=== PATIENT | female | born 1980 | race Caucasian/White ===

== ENCOUNTER 2021-03-10 01:45 | Emergency (ER) | payer BC ==
[~2021-03-10] VITALS: Ht 175.3 cm; Wt 56.5 kg
--- NOTE | 2021-03-10 02:13 | PHYS DOC ---
Adult General Chief Complaint Chief Complaint: ABDOMINAL PAIN HPI HPI Patient is a 40-year-old female who presents with a chief complaint of epigastric pain, 6 out of 10, sharp in nature with some radiation to her back and right upper quadrant which started about 930 last night shortly after eating. States she had anything like this before. Denies any recent travels, traumas, illnesses, fevers, chest pain, shortness of breath, dysuria, hematuria, blood in the stool or diarrhea. States she only has sex with women, is not and does not want a test/discharge for test because she is never had sex with a man. Denies any history of STIs. Denies any vagina l bleeding, discharge or pain. Review of Systems Review of Systems Review of systems otherwise unremarkable except noted in HPI Physical Exam Physical Exam Constitutional: Well developed, well nourished, no acute distress, non-toxic appearance. [] HENT: Normocephalic, atraumatic, oropharynx moist, Eyes: conjunctiva normal, no discharge. [] Cardiovascular:Heart rate regular rhythm, no murmur [] Lungs & Thorax: Bilateral breath sounds clear to auscultation [] Abdomen: soft, no tenderness, no masses, no pulsatile masses. [] Skin: Warm, dry, no erythema, no rash. [] Back: No tenderness, no CVA tenderness. [] Extremities: No tenderness, ROM intact, no edema. [] Neurologic: Alert and oriented X 3, no focal deficits noted. [] Psychologic: Affect normal, judgement normal, mood normal. [] EKG EKG [] Radiology/Procedures Radiology/Procedures [] Heart Score C/O Chest Pain: No Risk Factors: Risk Factors: DM, Current or recent (<one month) smoker, HTN, HLP, family history of CAD, obesity. Risk Scores: Risk Factors: DM, Current or recent (<one month) smoker, HTN, HLP, family h istory of CAD, obesity. Course & Med Decision Making Course & Med Decision Making Patient is a 40-year-old female who presents with a chief complaint of abdominal pain Vital signs not concerning. Physical exam noted above. Patient placed on monitor with IV access established. Laboratory analysis not concerning. CT notable for significant stool burden, suggesting constipation. Urinalysis with elevated specific gravity. Discussed all findings with patient. Discussed strategies for managing constipation. Discussed staying properly hydrated. Advised to follow-up in the morning with primary care physician to update on ED visit and set up a follow-up. Gave return precautions to the ED. Patient grateful, verbalized understanding and agreed with plan of discharge. Dragon Disclaimer Dragon Disclaimer This electronic medical record was generated, in whole or in part, using a voice recognition dictation system. Departure Departure: Impression: Primary Impression: Epigastric pain Additional Impressions: Constipation Dehydration Disposition: HOME / SELF CARE / HOMELESS Condition: GOOD Referrals: PCP,LINDY (PCP) DANIEL SOTREY Patient Instructions: Constipation, Adult, Dehydration, Adult Additional Instructions: Thank you for coming into the emergency department tonight and allowing us to take care of you. Please read the attached information carefully to go back over some of the things we discussed. Please be sure to drink plenty of fluid as your labs are suggestive of a level of dehydration. As we discussed, your CT scan was notable for constipation. Over the next couple of days please be sure to eat a light clear diet with lots of fluids and start an [id number] stool softener such as MiraLAX. Please follow-up with your primary care physician as soon as you can to update on ED visit and set up a follow-up to discuss need for further management. Please come back to the ED with new or concerning symptoms as we discussed. Problem Qualifiers SANTI CASTANEDA MD Mar 10, 2021 02:13
[2021-03-10] MEDS ORDERED: IOHEXOL 300 MG/ML 75 ML VIAL. IV ONE (02:30)
[2021-03-10] MEDS ORDERED: ONDANSETRON PF 4 MG/2 ML VIAL. IVP ONE (02:30)
[2021-03-10] MEDS ORDERED: CONTRAST GIVEN. MC PRN (02:30)
[2021-03-10 02:41] LABS: BASO # 0.1 x10^3/uL (0.0-0.2); BASO % 1 % (0-3); EOS # 0.1 x10^3/uL (0.0-0.7); EOS % 1 % (0-3); HEMOGLOBIN 13.2 g/dL (12.0-15.5); LYMPH # 2.3 x10^3/uL (1.0-4.8); LYMPH % 25 % (24-48); MEAN CORPUSCULAR HEMOGLOBIN 36 pg (25-35); MEAN CORPUSCULAR HGB CONC 35 g/dL (31-37); MEAN CORPUSCULAR VOLUME 103 fL (79-100); MONO # 0.8 x10^3/uL (0.0-1.1); MONO % 9 % (0-9); NEUT # 5.9 x10^3uL (1.8-7.7); NEUT % 65 % (31-73); PLATELET COUNT 268 x10^3/uL (140-400); RED BLOOD COUNT 3.68 x10^6/uL (3.50-5.40); WHITE BLOOD COUNT 9.1 x10^3/uL (4.0-11.0)
[2021-03-10 02:56] LABS: BACTERIA,URINE FEW /HPF (0-FEW); BILIRUBIN,URINE NEG (NEG); CLARITY,URINE CLEAR; COLOR,URINE YELLOW; GLUCOSE,URINE NEG (NEG); NITRITE,URINE NEG (NEG); SQUAMOUS EPITHELIAL CELL,UR FEW /LPF; UROBILINOGEN,URINE 0.2 mg/dL (0.2 mg/dL)
--- NOTE | 2021-03-10 03:25 | RAD ---
EXAMINATION: CT ABDOMEN+PELVIS W CLINICAL HISTORY: Epigastric / RUQ pain TECHNIQUE: CT of the abdomen and pelvis was performed using standard technique, scanning from just ab ove the dome of the diaphragm to the symphysis pubis following administration of intravenous contrast . CT Dose Reduction Employed: One or more of the following individualized dose reduction techniques wer e utilized for this examination: 1. Automated exposure control 2. Adjustment of the mA and/or kV ac cording to patient size 3. Use of iterative reconstruction technique. COMPARISON: None FINDINGS: Visualized heart and lungs unremarkable. Liver, gallbladder, pancreas, spleen, and adrenal glands unremarkable. Bilateral hypoenhancing renal lesions measuring up to 1.4 cm, incompletely evaluated but likely cysts . Nondiagnostic evaluation of the nondistended urinary bladder. Uterus unremarkable. Ovaries poorly vis ualized. No bowel dilation or definite wall thickening. Prominent stool throughout the colon. Appendix not def initively visualized. No abdominal aortic or iliac artery aneurysm. No evidence of acute osseous abnormality. IMPRESSION: No evidence of acute abdominopelvic abnormality. Electronically signed by: Lawrence Ruano DO (03/10/2021 3:22 AM) [facility]
[2021-03-10 03:27] LABS: CALCIUM 8.7 mg/dL (8.5-10.1); CREATININE 0.7 mg/dL (0.6-1.0); GFR 92.7; POTASSIUM 3.6 mmol/L (3.5-5.1)
[2021-03-10 03:33] LABS: ALBUMIN 3.9 g/dL (3.4-5.0); ALBUMIN/GLOBULIN RATIO 1.3 (1.0-1.7); TOTAL BILIRUBIN 0.4 mg/dL (0.2-1.0)
[2021-03-10 04:00] VITALS: BP 119/54
== END 2021-03-10 04:06 | disposition home or self-care (01) ==
LOC: ER 01:45
DX: K59.00 Constipation, unspecified (principal); E86.0 Dehydration
CPT/HCPCS: 36415; 74177; 80053; 81001; 83690; 85025; 99285; Q9967